=== PATIENT | female | born 1950 | race Caucasian/White ===

== ENCOUNTER 2017-11-19 11:05 | Outpatient (CLI) | payer MEDICARE ==
--- NOTE | 2017-11-19 13:36 | MRI ---
MRI RIGHT SHOULDER WITHOUT CONTRAST: INDICATIONS: Concern for rotator cuff tear after fall. COMPARISON: Prior radiograph of right shoulder, dated 01/01/2009. FINDINGS: There is post procedural change of a prior rotator cuff repair, consisting of suture anchors within t he anterior and mid aspect of the greater tuberosity. There is full-thickness disruption of the supr aspinatus and anterior infraspinatus, with retraction of the tendon to the level of the glenohumeral joint. There is mild to moderate supraspinatus and mild infraspinatus muscular atrophy. There is mo derate tendinosis of the subscapularis with a partial-thickness articular surface tear involving the cranial to mid aspect of the subscapularis. There is mild muscular atrophy of the subscapularis. Th ere is moderate AC joint osteoarthrosis. There is some degenerative fraying of the superior glenoid labrum. The biceps tendon is not visualized within the bicipital groove and may be disrupted and dis tally retracted. Portions of the proximal intraarticular component remain, overlying the humeral hea d. There is mild glenohumeral osteoarthrosis. The inferior glenohumeral labrum ligamentous complex appears intact. IMPRESSION: 1. Large full-thickness tear of the supraspinatus and anterior infraspinatus with mild infraspinatus and mild to moderate supraspinatus muscular atrophy. 2. Partial-thickness articular surface tear involving the cranial to mid aspect of the subscapularis and involving 50% of the tendon thickness with mild subscapularis tendinosis. 3. Mild glenohumeral osteoarthrosis. 4. Suspected full-thickness disruption of the biceps tendon with distal retraction. Portions of the intraarticular component of the biceps tendon remain. There is degenerative fraying of the superior glenoid labrum. 5. Moderate to severe acromioclavicular joint osteoarthrosis. POS: [facility]
== END 2017-11-19 11:06 | disposition home or self-care (01) ==
LOC: MRI 11:05
PROVIDERS: ATTEND Orthopaedic Surgery
DX: M75.121 Complete rotator cuff tear or rupture of right shoulder, not specified as traumatic (principal); M62.511 Muscle wasting and atrophy, not elsewhere classified, right shoulder; M19.011 Primary osteoarthritis, right shoulder; M75.81 Other shoulder lesions, right shoulder

== ENCOUNTER 2017-11-26 09:54 | Outpatient (CLI) | payer MEDICARE ==
--- NOTE | 2017-11-26 11:51 | RAD ---
CHEST 2 VIEWS: Date: 11/26/17 HISTORY: Preop. COMPARISON: Chest radiograph from 2014. FINDINGS: Lungs appear clear. No pneumothorax or effusion. Cardiac silhouette and mediastinal contour within no rmal limits. IMPRESSION: No acute intrathoracic abnormality. POS: [facility]
[2017-11-26 12:34] LABS: #Eosinphils 0.1 thou/uL (0.0-0.7); #Lymphocytes 1.8 thou/uL (1.20-3.40); #Monocytes 0.6 thou/uL (0.11-0.59); #Neutrophils 4.8 thou/uL (1.40-6.50); %Basophils 0.2 % (0.0-1.0); %Eosinophils 1.7 % (0.0-10.0); %Lymphocytes 24.4 % (21.0-51.0); %Monocytes 7.8 % (0.0-10.0); %Neutrophils 65.9 % (42.0-75.0); Hemoglobin 12.4 g/dL (12.0-16.0); Mean Corpuscular HGB CONC 32.6 g/dL (32.0-36.0); Mean Corpuscular Hemoglobin 29.4 pg (27.0-31.0); Mean Corpuscular Volume 90.2 fl (81.0-99.0); Mean Platelet Volume 7.1 fL (7.4-10.4); Platelet Count 333 thou/uL (130-400); White Blood Cell (WBC) Count 7.2 thou/uL (4.8-10.8)
[2017-11-26 12:46] LABS: Anion Gap 13 mmol/L (10-20); BUN (Urea Nitrogen) 19 mg/dL (9.8-20.1); Calc. Creatinine Clearance 0 mL/min (70-130); Calcium 9.5 mg/dL (7.8-10.44); Carbon Dioxide 28 mmol/L (23-31); Chloride 103 mmol/L (98-107); Estimated GFR-MDRD 60; Glucose 102 mg/dL (80-115); Potassium 4.7 mmol/L (3.5-5.1); Sodium 139 mmol/L (136-145)
== END 2017-11-26 09:55 | disposition home or self-care (01) ==
LOC: LABBT 09:54
PROVIDERS: ATTEND Orthopaedic Surgery
DX: Z01.818 Encounter for other preprocedural examination (principal); M75.101 Unspecified rotator cuff tear or rupture of right shoulder, not specified as traumatic
CPT/HCPCS: 71046; 80048; 85025; 93005; 93010

== ENCOUNTER → 2017-12-03 | Day surgery (SDC) | payer MEDICARE ==
[2017-11-26 10:07] VITALS: BMI 33.6
[~2017-12-03] MED LIST: Clindamycin/D5W 600 mg/50 ml Premix Bag ONE; Dexamethasone 20 MG/5 ML VIAL ONE; Fentanyl 100 MCG/2 ML VIAL IV PRN; Fentanyl 100 MCG/2 ML VIAL ONE; Glycopyrrolate 0.2 MG/ML 5 ML SYRINGE ONE; HYDROcodone/Acetaminophen 7.5/325 mg Tablet PO PRN; Midazolam HCl 2 mg/2 ml Vial ONE; Ondansetron HCl/PF 4 MG/2 ML Vial IVP PRN; Ondansetron HCl/PF 4 MG/2 ML Vial ONE; PROPOFOL 200 MG/20 ML VIAL ONE; Promethazine HCl 25 MG/ML VIAL IM PRN; Ropivacaine 0.2% HCl/PF (40 MG/20 ML VIAL) ONE; Ropivacaine 0.5% HCl/PF (150 MG/30 ML VIAL) ONE; Ropivacaine HCl/PF 1,100 MG in Sodium Chloride 0.9% 440 ML NERVE BLCK SCH; Vancomycin HCl 1.5 GM in Sodium Chloride 0.9% 250 ML 300 ML IVPB SCH; Zolpidem Tartrate 5 MG TAB PO PRN; traMADol HCl 50 MG TAB PO PRN
--- NOTE | 2017-12-03 10:47 | OP ---
DATE OF PROCEDURE: 12/03/2017 PREOPERATIVE DIAGNOSES: Massive rotator cuff tear, painful hardware and biceps tendon partial tear o f right shoulder. POSTOPERATIVE DIAGNOSES: Massive rotator cuff tear, painful hardware and biceps tendon partial tear of right shoulder. PROCEDURE: Open rotator cuff repair, open hardware removal, open biceps tenodesis, open acromioplast y. SURGEON: Derek Benoit M.D. BIAS CUTTER: Jerrell Ramey PA-C. BLOOD LOSS: 100. SPECIMEN: None. DRAINS: None. COMPLICATIONS: None. PROCEDURE IN DETAIL: The patient was taken to the operating room where general anesthesia was induce d. The patient was placed in beach chair position. She received vancomycin and Levaquin preoperativ neyda. The arm was prepped and draped in the usual sterile fashion. I made a deltoid splitting approa ch, bursectomy was performed after the anterior deltoid was taken down. I performed an anterior and i nferior acromioplasty. The cuff tear was massive, basically just a bald humeral head showing in the wound. I was able to mobilize the tear from posteriorly and anteriorly and after extensive lysis of adhesions I was able to allow the ends of the rotator cuff to meet. I debrided the ends of the tear, I repaired the tear in a convergence type fashion using cottony Dacron suture with a baseball stitch . There was a prominent screw and the greater tuberosity screw was removed. I then placed 2 corkscr ew suture anchors into the freshened greater tuberosity. Sutures were passed with a Danny-Daniel type repair with 1 limb of each as suture anchor passing across the convergence stitch. Sutures were tie d down to the humerus and then I reinforced this with a double row using #2 [place]ocks with martines b one type pattern. Sutures were cut. It appeared that there was a very good coverage of the humeral head, although under a fair amount of tension. Irrigation was performed. Hemostasis was obtained as needed. The deltoid was repaired with #1 Ethibond, subcutaneous tissue closed with 2-0 Vicryl, the skin was closed with elva. Sterile dressing was applied.
== END ==
LOC: SDC 06:20
PROVIDERS: ATTEND Orthopaedic Surgery
PROC: 0LM10ZZ Reattachment of Right Shoulder Tendon, Open Approach (ICD-10-PCS; principal; 2017-12-03)
PROC: 0RNJ0ZZ Release Right Shoulder Joint, Open Approach (ICD-10-PCS; 2017-12-03)
PROC: 0RPJ04Z Removal of Internal Fixation Device from Right Shoulder Joint, Open Approach (ICD-10-PCS; 2017-12-03)
PROC: 0LS10ZZ Reposition Right Shoulder Tendon, Open Approach (ICD-10-PCS; 2017-12-03)
DX: S46.011A Strain of muscle(s) and tendon(s) of the rotator cuff of right shoulder, initial encounter (principal); S46.111A Strain of muscle, fascia and tendon of long head of biceps, right arm, initial encounter; T84.84XA Pain due to internal orthopedic prosthetic devices, implants and grafts, initial encounter; I10 Essential (primary) hypertension; E78.00 Pure hypercholesterolemia, unspecified; F41.9 Anxiety disorder, unspecified; J45.909 Unspecified asthma, uncomplicated; K21.9 Gastro-esophageal reflux disease without esophagitis; G89.29 Other chronic pain; M54.9 Dorsalgia, unspecified; Z79.51 Long term (current) use of inhaled steroids; Z79.899 Other long term (current) drug therapy; Z88.1 Allergy status to other antibiotic agents; Z96.651 Presence of right artificial knee joint; Z98.890 Other specified postprocedural states; W19.XXXA Unspecified fall, initial encounter
CPT/HCPCS: 20680; 23420; 23430; 97139; C1713; G8984; G8985; G8986; J1100; J2250; J2405; J2704; J2795; J3010; J3370; J3490; J7050

== ENCOUNTER 2018-08-20 09:03 | Inpatient (IN) | payer MEDICARE ==
[2018-08-20 09:42] LABS: Bilirubin Negative (Negative); Blood, Urine Negative (Negative); Clarity CLEAR (Clear); Glucose, Urine (Dipstick) Negative (Negative); Leukocyte Negative (Negative); Nitrite Negative (Negative); Protein, Urine (Dipstick) Negative (Neg-Trace); Specific Gravity, Urine 1.006 (1.002-1.036); Urobilinogen 0.2 mg/dL (0.2-1.0)
[2018-08-20 10:00] LABS: Base Excess-Venous -1.1 mmol/L (-2.0 to 3.0); Bicarbonate (HCO3v) 21.3 mmol/L (22.0-28.0); CO2 Tension (PvCO2) 28.6 mmHg (40.0-50.0); Calcium, Ionized 1.05 mmol/L (See Comments:); Chloride 110 mmol/L (98-107); Hemoglobin - Calc 12.8 g/dL (12.0-16.0); Potassium 4.1 mmol/L (3.5-5.1); Sodium 146 mmol/L (138-145); T. Carbon Dioxide 22.2 mmol/L (22.0-28.0); vO2 Saturation-calc 92.1 % (60.0-85.0)
[2018-08-20 10:00] LABS: #Eosinphils 0.1 thou/uL (0.0-0.7); #Lymphocytes 1.4 thou/uL (1.20-3.40); #Monocytes 0.4 thou/uL (0.11-0.59); #Neutrophils 4.1 thou/uL (1.40-6.50); %Basophils 0.6 % (0.0-1.0); %Eosinophils 1.1 % (0.0-10.0); %Lymphocytes 23.2 % (21.0-51.0); %Monocytes 7.2 % (0.0-10.0); Hemoglobin 12.9 g/dL (12.0-16.0); Mean Corpuscular Hemoglobin 29.7 pg (27.0-31.0); Mean Corpuscular Volume 90.1 fL (78.0-98.0); Mean Platelet Volume 7.2 fL (7.4-10.4); Platelet Count 295 thou/uL (130-400); RBC Distribution Width 12.2 % (11.5-14.5); Red Blood Cell (RBC) Count 4.33 mill/uL (4.20-5.40); White Blood Cell (WBC) Count 6.1 thou/uL (4.8-10.8)
[2018-08-20 10:26] LABS: ALT (SGPT) 15 U/L (8-55); AST (SGOT) 18 U/L (5-34); Alkaline Phosphatase 59 U/L (40-150); Anion Gap 14 mmol/L (10-20); BUN (Urea Nitrogen) 14 mg/dL (9.8-20.1); Bilirubin, Total 1.2 mg/dL (0.2-1.2); Calc. Creatinine Clearance 0 mL/min (70-130); Calcium 9.4 mg/dL (7.8-10.44); Carbon Dioxide 23 mmol/L (23-31); Chloride 111 mmol/L (98-107); Estimated GFR-MDRD 79; Globulin 2.8 g/dL (2.4-3.5); Glucose 106 mg/dL (80-115); Potassium 4.1 mmol/L (3.5-5.1); Protein, Total 6.8 g/dL (6.0-8.3); Sodium 144 mmol/L (136-145)
[2018-08-20] MEDS ORDERED: ISOVUE-370 76%-LOCM 1 ML ONE (10:33)
[2018-08-20] MEDS ORDERED: Gadobenate Dimeglumine 529 MG/1 ML (20ML VIAL) ONE (10:38)
[2018-08-20] MEDS ORDERED: Lorazepam 2 MG/ML VIAL ONE ×2 (10:51→11:23)
--- NOTE | 2018-08-20 11:09 | CT ---
CT LUMBAR SPINE WITHOUT IV CONTRAST: HISTORY: Low back pain following injury from a fall this morning. Prior left-sided weakness. COMPARISON: None. FINDINGS: Moderate levoscoliosis. Severe multilevel disk osteophytosis and facet arthrosis, evidence for sever e spondylosis. There appear to be postoperative laminectomy changes from L3 through L5. Moderate central canal, lateral recess, and foraminal stenosis at L1-L2. Severe central canal, lateral recess, and foraminal stenosis bilaterally at L2-L3. Extensive disk osteophytosis at L3-L4, with mild to moderate lateral recess stenosis and moderate to severe bilateral foraminal stenosis. No significant central canal, lateral recess, or foraminal stenosis at L4-L5. Severe foraminal stenosis on the left side, at L5-S1. No evidence for acute fracture. IMPRESSION: 1. No evidence for acute fracture or dislocation. 2. Levoscoliosis with severe spondylosis with postoperative laminectomy changes. 3. Multilevel variable severity canal, lateral recess, and foraminal stenosis, as above. 4. Scattered colonic diverticulosis without acute diverticulitis. 5. Small hiatal hernia. POS: [facility]
--- NOTE | 2018-08-20 11:11 | CT ---
CT THORACIC SPINE: Date: 08/20/18 Multiple axial tomograms obtained through thoracic spine with multiplanar reconstruction. INDICATION: Fall with injury to back. Left-sided weakness. FINDINGS: There are moderate degenerative changes of the thoracic spine with osteophytes from the thoracic vert ebra. Slight curvature of the thoracic spine to the right in the AP projection. On the sagittal view, the thoracic vertebra maintain normal height and alignment. There is no evidenc e of acute compression fracture. At the T12-L1 level, there is diffuse disc bulge resulting in mild to moderate central canal stenosis . No other significant central canal stenosis seen at the other thoracic levels. IMPRESSION: Degenerative changes of thoracic spine as described. No evidence of acute compression or fracture fortunato ntified. POS: [facility]
--- NOTE | 2018-08-20 11:47 | CT ---
CT OF BRAIN PERFORMED WITHOUT CONTRAST ENHANCEMENT: Date: 08/20/18 HISTORY: Altered mental status. Status post fall. Left-sided weakness. FINDINGS: There is edema change confined to the white matter in the right frontal and temporal lobes. There is associated mass effect with shift of midline structures by approximately 6-7 mm. Changes are very reina picious for an underlying mass. No hemorrhage is seen. Ventricles do not appear dilated. Mastoid air cells and visualized sinuses are clear. IMPRESSION: Vasogenic edema involving the white matter right temporoparietal region with findings very suspicious for an underlying neoplastic process. There is 6-7 mm shift of midline structures to the left. Furth er evaluation with MRI is recommended. Findings were telephoned to Merari Vega. CODE CR. POS: [facility]
[2018-08-20] MEDS ORDERED: Pantoprazole 40 MG VIAL ONE (12:04)
[2018-08-20] MEDS ORDERED: Dexamethasone 10 MG/ML VIAL ONE (12:04)
[2018-08-20] MEDS ORDERED: levETIRAcetam In NaCl (Iso-Os) 1,000 MG in Premix Bag 1 BAG IVPB SCH (12:15)
[2018-08-20] MEDS ORDERED: Dexamethasone 20 MG/5 ML VIAL ONE (13:42)
[2018-08-20] MEDS ORDERED: Rocuronium Bromide 10 MG/ML (10ML VIAL) ONE (13:42)
[2018-08-20] MEDS ORDERED: PHENYLEPHRINE-NS 100 MCG/ML 10 ML SYRINGE ONE (13:42)
--- NOTE | 2018-08-20 13:53 | MRI ---
MRI BRAIN WITH AND WITHOUT CONTRAST: Date: 08/20/18 Multiplanar, multisequential imaging of brain obtained. Postcontrast images are obtained with adminis tration of MultiHance IV. INDICATION: Follow-up CT head from earlier today which showed edema in the right cerebral hemisphere with midline shift. The exam is degraded due to motion. The postcontrast images are especially degraded. FINDINGS: There is enhancing mass in the right temporoparietal region which measures up to 3.3 cm. There is sig nificant surrounding vasogenic edema with mass effect. Midline shift to the left measured at 6.0 mm a t the septum pellucidum. No other abnormal enhancement is seen, although the postcontrast images are severely degraded. FLAIR sequence shows increased signal in the periventricular white matter, slightly more prominent on the left. No evidence of enhancement in this region, probably representing chronic ischemic change. IMPRESSION: Enhancing mass in the right parietotemporal region which does abut the pleural surface. Intra-axial l ocation is favored. There is significant surrounding vasogenic edema with mass effect and mild midlin e shift as described. POS: [facility]
[2018-08-20] MEDS ORDERED: PROPOFOL 20 ML ONE ×2 (13:54→14:20)
[2018-08-20] MEDS ORDERED: Succinylcholine Chloride 20 MG/ML 10 ml SYRINGE FS ONE (13:54)
[2018-08-20] MEDS ORDERED: Bacitracin Zinc Ointment 30 gm TUBE ONE (13:59)
[2018-08-20] MEDS ORDERED: Sodium Chloride 0.9% 10 ML ONE (13:59)
[2018-08-20] MEDS ORDERED: Thrombin 5000 UNITS/5 ML VIAL ONE (13:59)
[2018-08-20] MEDS ORDERED: Lidocaine 0.5%/Epinephrine 1:200,000 50 ml Vial ONE (13:59)
[2018-08-20] MEDS ORDERED: Fentanyl 250 MCG/5 ML VIAL ONE (14:20)
[2018-08-20] MEDS ORDERED: Midazolam HCl 2 mg/2 ml Vial ONE (14:27)
[2018-08-20] MEDS ORDERED: Fentanyl 100 MCG/2 ML VIAL ONE (14:27)
--- NOTE | 2018-08-20 15:07 | PRG ---
DATE OF SERVICE: 08/20/2018 SUBJECTIVE: We were called to evaluate Ms. Wyatt in the emergency room as she initially become from alert and left upper extremity weakness to left upper motor neuron pattern facial droop, progressive weakness and becoming more somnolent. I asked that she be intubated so that I could obtain a satisfactory preoperative CT to confirm what was evident on the initial CT with extensive vasogenic edema throughout the right hemisphere midline shift and what appeared to be a solid mass in the right parietal region. Our anesthesia colleagues assisted in this regard. I asked that the patient also be loaded with Decadron and Keppra. Following intubation, I let the family know that we are planning on taking the patient for stereotactic CT without and with contrast for operative planning and then taken the patient to the operating room. I do not think we have the luxury of waiting here as the patient is declining and has significant mass effect and midline shift related to this. I discussed with the patient's daughter her neurologic decline including her hospital course to date and even her pre-hospital course and the findings on the CT. She understands the need to proceed to surgery and as such, we will do this. She understands the risks are up to and including, but not limited to, wound healing issues such as infection, dehiscence, CSF leak, temporary and permanent neurologic deficits, seizure, and this is very likely neoplasm. She understands and wished to proceed with the surgery. DIAGNOSIS: Large right frontoparietal mass with extensive edema, midline shift, mass effect, and neurologic decline. Job ID: [id number]
--- NOTE | 2018-08-20 15:55 | CT ---
CT HEAD WITHOUT CONTRAST FOLLOWING BRAIN LAB PROTOCOL: Date: 08/20/18 Multiple axial tomograms obtained with IV enhancement. Brain lab protocol was performed for surgical guidance. INDICATION: Brain lab protocol performed for neurosurgery for surgical guidance. Correlation made to MRI. FINDINGS/IMPRESSION: There is an enhancing mass in the right parietotemporal region with significant surrounding vasogenic edema and mild midline shift as noted on MRI. POS: [facility]
[2018-08-20] MEDS ORDERED: Propofol 1,000 MG/100 ML VIAL IV ONE (17:48)
[2018-08-20] MEDS ORDERED: Fentanyl BOLUS 250 ML IVPB PRN (18:10)
[2018-08-20] MEDS ORDERED: fentaNYL Citrate/PF 2,000 MCG in Sodium Chloride 0.9% 60 ML IV SCH (18:10)
[2018-08-20] MEDS ORDERED: Propofol BOLUS 1,000 MG/100 ML VIAL IV PRN (18:10)
[2018-08-20] MEDS ORDERED: DISCONTINUE PREVIOUS NARCOTIC PAIN MEDICATIONS AND BENZODIAZEPINES FS SCH (18:10)
[2018-08-20] MEDS ORDERED: Propofol 1,000 MG/100 ML VIAL IV PRN (18:10)
[2018-08-20] MEDS ORDERED: Morphine 2 MG/ML SYRINGE SLOW IVP PRN (18:10)
[2018-08-20] MEDS ORDERED: Lorazepam 2 MG/ML VIAL SLOW IVP PRN (18:10)
[2018-08-20 18:17] LABS: Actual Bicarbonate (HCO3a) 19.4 mEq/L (22-28); Base Excess (BEa) -4.9 mEq/L (-2.0 to +3.0); CO2 Tension 33.5 mmHg (35.0-45.0); Calcium, Ionized 1.13 mmol/L (1.12-1.30); Carboxyhemoglobin (COHb) 0.7 gm% (0.0-3.0); Hemoglobin (Hb) 12.9 g/dL (12.0-16.0); O2 Tension (PaO2) 162.7 mmHg (> 80.0); Potassium - ABG Lab 4.11 mmol/L (3.70-5.30); pH, Arterial 7.38 (7.35-7.45)
[2018-08-20] MEDS ORDERED: Dexamethasone 4 MG in Sodium Chloride 0.9% 50 ML IVPB SCH (19:00)
[2018-08-20 19:05] LABS: ALV-art Gradient 80.625 (0-20); Puncture Site LINE
[2018-08-20] MEDS: Sodium Chloride 0.9% 1,000 ML IV SCH (19:19)
[2018-08-20 19:32] VITALS: BMI 37.0
[2018-08-20] MEDS: hydrALAZINE 20 MG/ML VIAL SLOW IVP PRN ×2 (20:01→21:10)
[2018-08-21] MEDS: Dexamethasone 4 MG in Sodium Chloride 0.9% 50 ML IVPB SCH ×4 (01:24→20:19)
[2018-08-21 05:01] LABS: #Monocytes 0.3 thou/uL (0.11-0.59); #Neutrophils 8.8 thou/uL (1.40-6.50); %Basophils 0.1 % (0.0-1.0); %Eosinophils 0.1 % (0.0-10.0); %Lymphocytes 9.8 % (21.0-51.0); %Monocytes 2.7 % (0.0-10.0); %Neutrophils 87.4 % (42.0-75.0); Hemoglobin 11.7 g/dL (12.0-16.0); Mean Corpuscular HGB CONC 33.9 g/dL (32.0-36.0); Mean Corpuscular Hemoglobin 30.3 pg (27.0-31.0); Mean Corpuscular Volume 89.4 fL (78.0-98.0); Platelet Count 283 thou/uL (130-400); RBC Distribution Width 12.2 % (11.5-14.5); Red Blood Cell (RBC) Count 3.86 mill/uL (4.20-5.40); White Blood Cell (WBC) Count 10.1 thou/uL (4.8-10.8)
[2018-08-21 05:19] LABS: Anion Gap 14 mmol/L (10-20); BUN (Urea Nitrogen) 12 mg/dL (9.8-20.1); Calc. Creatinine Clearance 112 mL/min (70-130); Calcium 8.3 mg/dL (7.8-10.44); Carbon Dioxide 18 mmol/L (23-31); Chloride 113 mmol/L (98-107); Estimated GFR-MDRD 73; Glucose 131 mg/dL (80-115); Potassium 3.7 mmol/L (3.5-5.1); Sodium 141 mmol/L (136-145)
[2018-08-21] MEDS: hydrALAZINE 20 MG/ML VIAL SLOW IVP PRN (06:27)
[2018-08-21] MEDS: Sodium Chloride 0.9% 1,000 ML IV SCH ×2 (06:27→23:39)
--- NOTE | 2018-08-21 07:32 | CT ---
HEAD CT NONCONTRAST: Date: 08/21/18 COMPARISON: Previous day. INDICATION: Status post right craniotomy, tumor resection. FINDINGS: There has been interval performance of right parietal craniotomy with craniotomy flap and overlying p late and screw fixation. There is underlying postoperative complex fluid and air within the extra-axi al space overlying the right parietal convexity. The large volume of previously demonstrated vasogeni c edema of the right cerebral hemisphere does persist. There has been slight reduction in degree of m ass effect, as well as decreased leftward subfalcine herniation now measuring 4.0 mm at septum pelluc idum. Mild postoperative blood products are present at the deep surface of the resection cavity. The resection cavity measures approximately 3.0 cm AP x 1.6 cm transverse. There is evidence of chronic i schemia, notably at the anterior left coronal radiata. Mild volume of postoperative pneumocephalus is located overlying the lateral aspect of the right frontal lobe. IMPRESSION: Postoperative head CT with slight interval reduction with regard to intracranial mass effect and left morocho subfalcine herniation. There remains a prominent degree of vasogenic edema occupying the right c erebral hemisphere. Recommend continued imaging follow-up. POS: [facility]
[2018-08-21] MEDS ORDERED: Prevnar 13-Val Conj/PF 0.5 ML SYRINGE IM ONE (09:00)
[2018-08-21] MEDS: Senokot S 8.6-50 MG TAB PO SCH ×2 (09:12→21:05)
[2018-08-21] MEDS: Pantoprazole 40 MG VIAL IVP SCH (09:13)
[2018-08-21] MEDS: Vancomycin HCl 1 GM in Premix Bag 1 BAG IVPB SCH (09:18)
--- NOTE | 2018-08-21 10:45 | CON ---
DATE OF CONSULTATION: 08/21/2018 SERVICE: Pulmonary Medicine. REASON FOR CONSULTATION: ICU patient. HISTORY OF PRESENT ILLNESS: The patient is a 67-year-old white female with past medical history significant for brain tumor. She underwent an MRI of the brain on 20 August 2018. At that point, she was discovered to have an enhancing mass in the right parietotemporal region. There was significant vasogenic edema surrounding the mass and midline shift. As such, she was taken for a right craniotomy with excision of this mass. The pathology is currently pending. She cannot provide any additional elements of the history. Currently, she is intubated and requiring some sedation to stay comfortable. We will put her on a spontaneous breathing trial and see how she does with that. Otherwise, she went into this operation electively. We are not aware of any lung disease. PAST MEDICAL HISTORY: 1. Hypertension. 2. Dyslipidemia. 3. Type 2 diabetes mellitus. 4. Anxiety disorder. 5. Asthma. 6. Brain tumor. PAST SURGICAL HISTORY: 1. Meniscectomy on the left. 2. section. 3. Right breast biopsy. 4. Shoulder surgery. 5. Right knee arthroscopy. 6. Total knee replacement on the right. FAMILY HISTORY: Noncontributory. SOCIAL HISTORY: Negative for alcohol, tobacco, or illicit drug use. She has no exposure to chemicals, dust, asbestos, or tuberculosis. MEDICATIONS: List of her outpatient medications and inpatient medications were reviewed. We will make certain that she is on p.r.n. nebulized medications and Dulera. ALLERGIES: KEFLEX, LEVAQUIN. REVIEW OF SYSTEMS: Cannot be obtained as the patient is currently intubated and sedated. PHYSICAL EXAMINATION: VITAL SIGNS: Afebrile, pulse 114, blood pressure 134/57, respirations 19, saturation 100% on 30% FiO2. GENERAL: The patient is intubated and sedated. HEENT: Normocephalic. The right side of her head is shaved, and there is a clean dry and intact incision with staple line. Sclerae white. Conjunctivae pink. Oral mucosa is moist without lesions. LUNGS: Decent air entry. There is no prolonged expiratory phase or wheezing present. HEART: Normal rate, regular. ABDOMEN: Soft, nontender, nondistended. Bowel sounds are positive. MUSCULOSKELETAL: No cyanosis or clubbing. No pitting in the bilateral lower extremities. LABORATORY DATA: WBC 10.1, hemoglobin 11.7, platelets 283,000. PH 7.38, pCO2 33, PO2 162. Basic metabolic profile is otherwise unremarkable. Ionized calcium 1.05, troponin and liver function studies are unremarkable. Urinalysis is negative. IMAGIN. CT of the brain demonstrates postoperative head CT with slight interval reduction with regard to intracranial mass effect and leftward subfalcine herniation. Prominent degree of vasogenic edema remains. Occupying right cerebral hemisphere. 2. CT of the thoracic C-spine and lumbar C-spine demonstrates no acute issues. Chronic degenerative changes are noted. ASSESSMENT: 1. Brain tumor status post craniotomy and excision, postop day 1. 2. Asthma without acute exacerbation. DISCUSSION AND PLAN: The patient will be placed on a sedation holiday. When she meets criteria, spontaneous breathing trial will be pursued. If she does well and follows very simple commands, extubation will be considered. We still have yet to see what her neurologic deficit is going to be. She still has significant vasogenic edema. As such, we will continue our steroids and other supportive medications. Pulmonary/Critical Care will continue to follow along. CRITICAL CARE TIME: 30 minutes. Job ID: [id number] MTDShannan
--- NOTE | 2018-08-21 11:53 | PRG ---
DATE OF SERVICE: 08/21/2018 SUBJECTIVE: Ms. Wyatt is postoperative day 1 from right temporoparietal stereotactic craniotomy for tumor resection. She is doing well. She is extubated. She has right-sided neglect a bit unusual for right-sided surgery. Nevertheless, she does move her left upper extremity spontaneously antigravity, but lacks fine motor coordination. She is able to mutter simple words and understand to a degree simple commands, but certainly is not verbose by any means. Her wound is healing well. We will continue Decadron. Await pathology and continue levetiracetam. We will keep her in the ICU another day, likely transfer to the floor tomorrow. Job ID: [id number]
[2018-08-21] MEDS: Pramipexole Di-HCl 0.25 MG TAB PO SCH ×2 (15:00→21:05)
[2018-08-21] MEDS: Mometasone/Formoterol 120 PUFF INHALER INH SCH (18:47)
[2018-08-21] MEDS ORDERED: Morphine 4 MG/ML VIAL ONE (21:22)
[2018-08-21] MEDS ORDERED: Morphine 2 MG/ML SYRINGE SLOW IVP PRN (21:41)
[2018-08-22] MEDS: Dexamethasone 4 MG in Sodium Chloride 0.9% 50 ML IVPB SCH ×4 (02:27→20:09)
[2018-08-22] MEDS: Mometasone/Formoterol 120 PUFF INHALER INH SCH ×2 (06:34→19:23)
[2018-08-22] MEDS: Pantoprazole 40 MG VIAL IVP SCH (08:06)
[2018-08-22] MEDS: Vancomycin HCl 1 GM in Premix Bag 1 BAG IVPB SCH (08:06)
[2018-08-22] MEDS: HYDROcodone/Acetaminophen 5/325 mg Tablet PO PRN ×2 (08:56→15:48)
[2018-08-22] MEDS: Pramipexole Di-HCl 0.25 MG TAB PO SCH ×3 (08:57→20:13)
[2018-08-22] MEDS: Senokot S 8.6-50 MG TAB PO SCH ×2 (08:57→20:13)
--- NOTE | 2018-08-22 11:14 | PRG ---
DATE OF SERVICE: 08/22/2018 SERVICE: Pulmonary Medicine. INTERVAL HISTORY: The patient is doing fine from mentation standpoint. She is only oriented x1 this morning. She is very confused about where she is or what the situation is. Otherwise, she denies having any pain. She does not have any headache, nausea, vomiting, or diarrhea. Her left upper and lower extremity strength are actually improving a little bit. She has a little bit of word-finding difficulty, but outside of that, she is actually remarkably neurologically intact. PHYSICAL EXAMINATION: VITAL SIGNS: Afebrile with T-max 99.1, pulse 82, blood pressure 114/72, respirations 13, saturations 96% on room air. GENERAL: The patient is awake and alert, in no apparent distress. LUNGS: Excellent air entry. There is no prolonged expiratory phase or wheezing present. HEART: Normal rate and regular. ABDOMEN: Soft, nontender, nondistended. Bowel sounds are positive. MUSCULOSKELETAL: No cyanosis or clubbing. No pitting in the bilateral lower extremities. NEUROLOGIC: There is subtle weakness in the left upper extremity compared to the right. She has some word-finding difficulties. ASSESSMENT: 1. Brain tumor, status post craniectomy and excision, postop day 2. 2. Asthma without acute exacerbation. DISCUSSION AND PLAN: From my perspective, she is stable for transition out of the ICU to the Stroke or Surgical Unit. Pulmonary/Critical Care will continue to follow along. We will advance her diet and have her work with Physical Therapy and Occupational Therapy. When she arrives on the floor, she will have no further requirements for inpatient Pulmonary/Critical Care opinion, and I will sign off. Please call with additional questions or concerns through time. Job ID: [id number]
[2018-08-22] MEDS ORDERED: Ondansetron PF 4 MG/2 ML Vial IVP PRN (11:30)
--- NOTE | 2018-08-22 12:08 | PRG ---
DATE OF SERVICE: SUBJECTIVE: Ms. Wyatt is now postop day 2 from right inferior parietal lobule resection of likely high-grade neoplasm presumably glioblastoma. She is more alert and conversant today. She seems uncomfortable in bed. They did attempt to get her to a chair, but she became dizzy. We will try and remove her Breaux catheter and get her to the floor. We will continue Decadron given her extensive vasogenic edema and consult inpatient rehab as I think she would be of benefit. I think she likely will need this and her is at home, but I do not think he would be able to take care of her at this point. Job ID: [id number]
[2018-08-22] MEDS: Gabapentin 300 MG CAP PO SCH ×2 (15:22→20:13)
[2018-08-23] MEDS: Dexamethasone 4 MG in Sodium Chloride 0.9% 50 ML IVPB SCH ×4 (01:20→20:48)
[2018-08-23] MEDS: ALPRAZolam 0.25 MG TAB PO PRN ×2 (01:23→23:10)
[2018-08-23] MEDS: Mometasone/Formoterol 120 PUFF INHALER INH SCH ×2 (07:33→19:36)
[2018-08-23] MEDS: Pantoprazole 40 MG VIAL IVP SCH (08:14)
[2018-08-23] MEDS: Senokot S 8.6-50 MG TAB PO SCH ×2 (08:14→21:39)
[2018-08-23] MEDS: Gabapentin 300 MG CAP PO SCH ×3 (08:14→20:48)
[2018-08-23] MEDS: HYDROcodone/Acetaminophen 5/325 mg Tablet PO PRN (08:14)
[2018-08-23] MEDS: Pramipexole Di-HCl 0.25 MG TAB PO SCH ×3 (09:47→20:49)
--- NOTE | 2018-08-23 10:24 | OP ---
DATE OF PROCEDURE: 08/20/2018 OPERATING ROOM: OR 11. WOUND CLASSIFICATION: Type 1 wound. DISTRIBUTION CENTER ASSOCIATE: Ralph Russell PA-C. PREPROCEDURE DIAGNOSIS: Right inferior parietal lobule contrast-enhancing lesion, likely glioblastoma. POSTPROCEDURE DIAGNOSIS: Right inferior parietal lobule contrast-enhancing lesion, likely glioblastoma. PROCEDURES PERFORMED: 1. Right temporoparietal stereotactic craniotomy for supratentorial lesion resection, likely glioblastoma. 2. A modifier 57 should be added to this surgery as the decision to operate was made on the day I saw the patient. DESCRIPTION OF PROCEDURE: After informed consent was obtained from the patient's family, the patient was brought to the OR. Proper patient, pause, and identification was carried out. She was bumped with her head looking to the left to expose the right temporoparietal region. Hair was clipped in this area and her head secured in the [place] [employer] hogshead opener and stereotactic registration occurred with excellent accuracy. A linear incision was drawn out just above the auricle to allow for approach to the right-sided inferior parietal lobule lesion. This region was sterilely cleansed, prepared and draped. Proper patient, pause, and identification was carried out. The wound was then opened with a combination of sharp, monopolar, and blunt dissection. A circular craniotomy was performed and the dura was identified. The brain was exposed and both with gross and stereotactic visualization, identified the confines of the tumor. I went around the tumor and she had an excellent resection both gross and stereotactic visualization. Hemostasis was maximized throughout. Preliminary pathology was consistent with necrotic tissue again likely consistent with high-grade lesion, presumably primary brain tumor. Copious irrigation occurred throughout as did maximizing hemostasis. The wound was then closed in anatomic layers, including fixation of the bone flap with titanium plates and screws. The patient was then taken to the ICU, intubated. Job ID: [id number]
--- NOTE | 2018-08-23 18:26 | PRG ---
DATE OF SERVICE: 08/23/2018 POSTOPERATIVE NOTE: Ms. Wyatt is now postoperative day #3, having undergone right frontal tumor resection. She is slightly sleepy today, but otherwise awakens easily to voice. She is moving all extremities equally. She has been walking some with therapy. The main issue now is disposition, and she will likely need to go to inpatient rehab. We will continue to follow. Please call with any changes in the patient's neurologic status. Job ID: [id number]
[2018-08-23] MEDS: hydrALAZINE 20 MG/ML VIAL SLOW IVP PRN (20:49)
[2018-08-23] MEDS: Acetaminophen 325 MG TAB PO PRN (20:49)
[2018-08-24] MEDS: Dexamethasone 4 MG in Sodium Chloride 0.9% 50 ML IVPB SCH ×4 (01:05→20:20)
[2018-08-24] MEDS: Mometasone/Formoterol 120 PUFF INHALER INH SCH ×2 (07:12→19:14)
[2018-08-24 07:55] LABS: Actual Bicarbonate (HCO3a) 23.3 mEq/L (22-28); Analyzer IN Cardio OR; Base Excess (BEa) -2.3 mEq/L (-2.0 to +3.0); CO2 Tension 43.3 mmHg (35.0-45.0); Hemoglobin (Hb) 11.2 g/dL (12.0-16.0); O2 Tension (PaO2) 403.1 mmHg (> 80.0); Potassium - ABG Lab 3.75 mmol/L (3.70-5.30); Puncture Site ALINE; pH, Arterial 7.35 (7.35-7.45)
[2018-08-24] MEDS: Pramipexole Di-HCl 0.25 MG TAB PO SCH ×2 (08:13→15:08)
[2018-08-24] MEDS: Pantoprazole 40 MG VIAL IVP SCH (08:13)
[2018-08-24] MEDS: Gabapentin 300 MG CAP PO SCH ×3 (08:14→20:20)
[2018-08-24] MEDS: Senokot S 8.6-50 MG TAB PO SCH ×2 (08:15→20:20)
[2018-08-24] MEDS: Acetaminophen 325 MG TAB PO PRN ×2 (08:20→18:32)
[2018-08-24] MEDS: HYDROcodone/Acetaminophen 5/325 mg Tablet PO PRN (09:48)
--- NOTE | 2018-08-24 11:53 | PRG ---
DATE OF SERVICE: 08/24/2018 SUBJECTIVE: Ms. Wyatt is now postoperative day 3 following right-sided inferior parietal lobule lesion resection. Pathology is still pending. The patient frankly looks quite good clinically and I am very pleased with how she is doing. Her wound is healing well and she is very fluent in her speech. We are working on rehab and I would be in favor of that. I will recheck pathology today to see if we have a final. Job ID: [id number]
[2018-08-24] MEDS: hydrALAZINE 20 MG/ML VIAL SLOW IVP PRN (13:00)
[2018-08-24] MEDS ORDERED: Non-Formulary Item 1 EACH (Pramipexole Di-Hcl [Mirapex] 0.5 MG) PO PRN (14:56)
[2018-08-24] MEDS ORDERED: PROVENTIL INHALER 6.7 G (200 INHALATIONS) INH PRN (15:30)
[2018-08-24] MEDS: Pramipexole Di-HCl 1 MG TAB PO SCH (20:20)
[2018-08-24] MEDS: Simvastatin 5 MG TAB PO SCH (20:20)
[2018-08-25] MEDS: Dexamethasone 4 MG in Sodium Chloride 0.9% 50 ML IVPB SCH ×2 (01:14→08:17)
[2018-08-25] MEDS: Mometasone/Formoterol 120 PUFF INHALER INH SCH ×3 (07:23→18:50)
[2018-08-25] MEDS: Fluticasone Propionate Nasal Spray 16 gm Bottle NASAL SCH (08:17)
[2018-08-25] MEDS: Pramipexole Di-HCl 1 MG TAB PO SCH ×3 (08:18→21:41)
[2018-08-25] MEDS: Pantoprazole 40 MG VIAL IVP SCH (08:18)
[2018-08-25] MEDS: Gabapentin 300 MG CAP PO SCH ×3 (08:18→21:41)
[2018-08-25] MEDS: Losartan 25 MG TAB PO SCH (08:18)
[2018-08-25] MEDS: Senokot S 8.6-50 MG TAB PO SCH ×2 (08:19→21:42)
[2018-08-25] MEDS: Acetaminophen 325 MG TAB PO PRN ×2 (08:22→14:02)
--- NOTE | 2018-08-25 09:54 | PRG ---
DATE OF SERVICE: 08/25/2018 SUBJECTIVE: Ms. Wyatt is 5 days out from her right-sided craniotomy for a brain tumor resection. We are awaiting final pathology. The plan is for rehab likely today. Very pleased at this point, regarding how the patient is doing. Based on the pathology, she will likely need adjuvant therapy. Job ID: [id number]
[2018-08-25] MEDS: ALPRAZolam 0.25 MG TAB PO PRN (12:31)
[2018-08-25] MEDS ORDERED: Dexamethasone 4 mg/ml Vial SLOW IVP SCH (14:00)
[2018-08-25] MEDS: Dexamethasone 4 mg/ml Vial SLOW IVP SCH ×2 (14:01→21:42)
[2018-08-25] MEDS: Simvastatin 5 MG TAB PO SCH (21:41)
[2018-08-25] MEDS: levETIRAcetam 500 MG TAB PO SCH (21:42)
[2018-08-26] MEDS: Acetaminophen 325 MG TAB PO PRN (02:02)
[2018-08-26] MEDS: Dexamethasone 4 mg/ml Vial SLOW IVP SCH (02:02)
[2018-08-26] MEDS: Dexamethasone 1 MG TAB PO SCH ×4 (05:51→23:07)
[2018-08-26] MEDS: Mometasone/Formoterol 120 PUFF INHALER INH SCH ×2 (07:20→18:56)
[2018-08-26] MEDS: Senokot S 8.6-50 MG TAB PO SCH ×2 (07:27→20:21)
[2018-08-26] MEDS: Fluticasone Propionate Nasal Spray 16 gm Bottle NASAL SCH (10:10)
[2018-08-26] MEDS: Pramipexole Di-HCl 1 MG TAB PO SCH ×3 (10:11→21:12)
[2018-08-26] MEDS: Losartan 25 MG TAB PO SCH (10:11)
[2018-08-26] MEDS: levETIRAcetam 500 MG TAB PO SCH ×2 (10:11→21:12)
[2018-08-26] MEDS: Pantoprazole 40 MG VIAL IVP SCH (10:12)
[2018-08-26] MEDS: Gabapentin 300 MG CAP PO SCH ×3 (10:13→21:12)
--- NOTE | 2018-08-26 10:56 | PRG ---
DATE OF SERVICE: 08/26/2018 Ms. Wyatt is 6 days into her hospitalization for right-sided high-grade lesion resection. 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 She will be going to rehab and obviously will need adjuvant therapy. Job ID: [id number]
[2018-08-26] MEDS: Simvastatin 5 MG TAB PO SCH (21:11)
[2018-08-26] MEDS: ALPRAZolam 0.25 MG TAB PO PRN (21:12)
[2018-08-26] MEDS: HYDROcodone/Acetaminophen 5/325 mg Tablet PO PRN (23:06)
[2018-08-27] MEDS: Mometasone/Formoterol 120 PUFF INHALER INH SCH (06:15)
[2018-08-27] MEDS: Dexamethasone 1 MG TAB PO SCH ×2 (06:40→11:52)
[2018-08-27 07:47] VITALS: TEMP 98.3
[2018-08-27] MEDS: Losartan 25 MG TAB PO SCH (08:12)
[2018-08-27] MEDS: Gabapentin 300 MG CAP PO SCH ×2 (08:12→14:43)
[2018-08-27] MEDS: Fluticasone Propionate Nasal Spray 16 gm Bottle NASAL SCH (08:13)
[2018-08-27] MEDS: Senokot S 8.6-50 MG TAB PO SCH (08:13)
[2018-08-27] MEDS: Pramipexole Di-HCl 1 MG TAB PO SCH ×2 (08:13→14:42)
[2018-08-27] MEDS: levETIRAcetam 500 MG TAB PO SCH (08:15)
[2018-08-27] MEDS: Pantoprazole 40 MG VIAL IVP SCH (08:15)
[2018-08-27 11:39] VITALS: BP 119/73
[2018-08-27] MEDS: Acetaminophen 325 MG TAB PO PRN (14:45)
[2018-08-28] MEDS ORDERED: Dexamethasone 1 MG TAB PO SCH (06:00)
--- NOTE | 2018-08-28 22:53 | EKG ---
Test Reason : FALL Blood Pressure : / mmHG Vent. Rate : 082 BPM Atrial Rate : 082 BPM P-R Int : 196 ms QRS Dur : 078 ms QT Int : 374 ms P-R-T Axes : 046 -07 056 degrees QTc Int : 436 ms Normal sinus rhythm Low voltage QRS Nonspecific ST abnormality Abnormal ECG Confirmed by DEVON VILLEGAS ([id number]), brands editor JHOAN WORTHY ([id number] on 08/28/2018 10:52:44 PM Referred By: NELLY Confirmed By:DEVON VILLEGAS
[2018-08-30] MEDS ORDERED: Dexamethasone 1 MG TAB PO SCH (06:00)
[2018-09-01] MEDS ORDERED: Dexamethasone 1 MG TAB PO SCH (09:00)
== END 2018-08-27 15:34 | DRG 820 ==
LOC: ERS 09:03 → CCU 17:22 → SURG A 08-22 13:10
PROVIDERS: ADMIT Surgery; ATTEND Surgery
PROC: 00B70ZZ Excision of Cerebral Hemisphere, Open Approach (ICD-10-PCS; principal; 2018-08-20)
DX: C85.19 Unspecified B-cell lymphoma, extranodal and solid organ sites (principal); G93.6 Cerebral edema; I10 Essential (primary) hypertension; E11.9 Type 2 diabetes mellitus without complications; F41.9 Anxiety disorder, unspecified; J45.909 Unspecified asthma, uncomplicated; Z88.1 Allergy status to other antibiotic agents; G25.81 Restless legs syndrome; K21.9 Gastro-esophageal reflux disease without esophagitis; E78.00 Pure hypercholesterolemia, unspecified; Z96.651 Presence of right artificial knee joint
CPT/HCPCS: 31500; 36415; 70450; 70460; 70553; 72128; 72131; 80048; 80053; 81003; 82330; 82803; 82805; 84484; 85025; 86850; 86900; 86901; 88307; 88331; 88334; 88341; 88342; 88360; 88377; 93005; 94002; 94003; 94664; 96365; 96375; 96376; A9577; C1713; C1769; C9113; J0360; J1100; J1953; J2001; J2060; J2250; J2270; J2405; J2704; J3010; J3370; J3490; J7050; J8540; Q9966